=== PATIENT | male | born 1955 | race Hispanic/Latino ===

== ENCOUNTER 2023-08-25 06:06 | Day surgery (SDC) | payer MEDICARE ==
[2023-08-21 11:04] LABS: BASOPHILS # (AUTO) 0.05 K/uL (0.00-0.20); BASOPHILS % (AUTO) 0.9 % (0.0-5.0); EOSINOPHILS # (AUTO) 0.15 K/uL (0.00-0.70); EOSINOPHILS % (AUTO) 2.8 % (0.0-8.0); HEMATOCRIT 50.9 % (42-54); IMMATURE GRANULOCYTE ABSOLUTE 0.02 K/uL (0-1); LYMPHOCYTES # (AUTO) 2.1 K/uL (1.0-4.8); LYMPHOCYTES % (AUTO) 39.6 % (21.0-51.0); MEAN CORPUSCULAR HEMOGLOBIN 30.9 pg (27.0-33.0); MEAN CORPUSCULAR HGB CONC 33.8 g/dL (32.0-36.0); MEAN CORPUSCULAR VOLUME 91.5 fL (79-99); MONOCYTES # (AUTO) 0.5 K/uL (0.1-1.0); NEUTROPHILS # (AUTO) 2.4 K/uL (1.8-7.7); NEUTROPHILS % (AUTO) 46.3 % (40.0-77.0); PLATELET COUNT (AUTO) 169 K/uL (130-400); RED BLOOD CELL COUNT(AUTO) 5.56 MIL/uL (4.50-6.20); RED CELL DISTRIBUTION WIDTH 13.4 % (11.0-15.5); WHITE BLOOD COUNT (AUTO) 5.3 K/uL (4.8-10.8)
[2023-08-21 11:12] LABS: CREATININE 0.8 mg/dL (0.5-1.3); POTASSIUM 5.2 mmol/L (3.5-5.1)
[2023-08-21 11:17] VITALS: BP 138/75; PULSE 68; RESP 18
[2023-08-21 11:18] LABS: ADD UA MICROSCOPIC YES; APPEARANCE,URINE CLEAR (CLEAR); BILIRUBIN,URINE NEGATIVE (NEGATIVE); COLOR,URINE LIGHT-YELLOW (YELLOW); GLUCOSE, URINE (UA) >=1000 mg/dL (NEGATIVE); KETONES,URINE NEGATIVE (NEGATIVE); LEUKOCYTE ESTERASE ,URINE NEGATIVE Leu/uL (NEGATIVE); NITRATE,URINE NEGATIVE (NEGATIVE); OCCULT BLOOD,URINE NEGATIVE (NEGATIVE); PROTEIN,URINE NEGATIVE (NEGATIVE); UROBILINOGEN,URINE 0.2 mg/dL (0.2-1.0)
[2023-08-21 11:22] LABS: MUCUS,URINE RARE LPF (None Seen); RBC,URINE 0-1 /HPF (0-1); SQUAMOUS EPITHELIAL CELL,UR RARE /HPF (0-2)
[2023-08-21 11:34] LABS: B-TYPE NATRIURETIC PEPTIDE 44 pg/mL (0-100)
[2023-08-21 11:35] LABS: INR <= 0.93 (0.85-1.15); PROTHROMBIN TIME 10.9 SEC (9.6-11.6)
[2023-08-21 11:36] LABS: PARTIAL THROMBOPLASTIN TIME 26.4 SEC (26.3-35.5)
[~2023-08-25] VITALS: Ht 177.8 cm; Wt 88.4 kg
[2023-08-25] VITALS (9 sets, daily range): BP systolic 121–155; BP diastolic 70–90; PULSE 71–91; RESP 13–19
[~2023-08-25 06:06] MED LIST: EMPA25TA PO; FENO160T16 PO; METF-446 PO; SEMA1PEN3 SQ; TELM80TA10 PO; calcium PO; magnesium PO
[2023-08-25] MEDS ORDERED: 0.9%NACL 1000ML 1,000 ML IV ONE (06:52)
[2023-08-25] MEDS ORDERED: VERAPAMIL HCL 2.5 MG/ML VIAL ONE (07:30)
[2023-08-25] MEDS ORDERED: IOHEXOL 350 MG/ML 100ML INFUS..BTL IV ONE (07:30)
[2023-08-25] MEDS ORDERED: MIDAZOLAM HCL 1 MG/ML 2ML VIAL ONE ×2 (07:30→08:24)
[2023-08-25] MEDS ORDERED: LIDOCAINE HCL 400MG/20ML VIAL ONE (07:30)
[2023-08-25] MEDS ORDERED: HEPARIN 10,000 UNIT/10ML (1,000 UNIT/ML) VIAL ONE (07:30)
[2023-08-25] MEDS ORDERED: FENTANYL CITRATE PF 50 MCG/1 ML 2ML VIAL ONE (07:30)
[2023-08-25] MEDS ORDERED: NITROGLYCERIN 50MG VIAL ONE (07:31)
[2023-08-25] MEDS ORDERED: ASPIRIN 325MG EC TAB PO ONE (08:20)
[2023-08-25] MEDS ORDERED: CLOPIDOGREL 300MG TAB ONE (08:20)
[2023-08-25] MEDS ORDERED: EPTIFIBATIDE 75MG/100ML BOTTLE 100 ML IV ONE (08:22)
[2023-08-25] MEDS ORDERED: EPTIFIBATIDE 2 MG/ML 10 ML VIAL IVP ONE (08:24)
[2023-08-25] MEDS ORDERED: IOHEXOL-350 75 ML VIAL IV ONE (08:34)
[2023-08-25] MEDS ORDERED: IOHEXOL-350 50ML VIAL IV ONE ×2 (08:59→09:14)
[2023-08-25] MEDS ORDERED: 0.9%NACL 1000ML 1,000 ML IV SCH (10:00)
[2023-08-25] MEDS ORDERED: GLUCAGON 1MG KIT 1 MG ML IM PRN (10:00)
[2023-08-25] MEDS ORDERED: DEXTROSE 50%-WATER 50 ML DISP.SYRIN IV PRN (10:00)
[2023-08-26] MEDS ORDERED: CLOPIDOGREL 75MG TAB PO SCH (09:00)
[2023-08-26] MEDS ORDERED: ASPIRIN 81MG CHEW TAB PO SCH (09:00)
== END 2023-08-25 14:05 | disposition home or self-care (01) ==
LOC: DAH 06:06
PROVIDERS: ATTEND Student in an Organized Health Care Education/Training Program
DX: I25.10 Atherosclerotic heart disease of native coronary artery without angina pectoris (principal); I25.82 Chronic total occlusion of coronary artery; I44.0 Atrioventricular block, first degree; R94.31 Abnormal electrocardiogram [ECG] [EKG]; I10 Essential (primary) hypertension; E78.5 Hyperlipidemia, unspecified; E11.9 Type 2 diabetes mellitus without complications; Z79.01 Long term (current) use of anticoagulants; Z79.899 Other long term (current) drug therapy; Z98.890 Other specified postprocedural states; Z72.89 Other problems related to lifestyle; Z79.84 Long term (current) use of oral hypoglycemic drugs
CPT/HCPCS: 80048; 83880; 85025; 85610; 85730; 81001; 36415 ×2; 71045; 93005; 92978; 92979; 84132; 85347 ×2; 82948; 93458; C9600; C1887 ×3; C1769 ×2; C1725 ×2; C1874 ×2; C1894; A4649; C1753; J3010; J3490 ×3; J7030; J1644 ×3; J2250 ×2; J1327 ×2; Q9967 ×3; A4215; A4222; A4221; A4663; A4216; A4606; Q9965; A4223 ×3; 96360; 96361; 99156; 99157

== ENCOUNTER 2023-08-30 13:42 | Emergency (ER) | payer MEDICARE ==
[~2023-08-30] VITALS: Ht 177.8 cm; Wt 87.1 kg
[2023-08-30 14:38] LABS: BASOPHILS # (AUTO) 0.05 K/uL (0.00-0.20); BASOPHILS % (AUTO) 0.8 % (0.0-5.0); EOSINOPHILS # (AUTO) 0.33 K/uL (0.00-0.70); EOSINOPHILS % (AUTO) 5.3 % (0.0-8.0); HEMATOCRIT 44.1 % (42-54); IMMATURE GRANULOCYTE ABSOLUTE 0.02 K/uL (0-1); LYMPHOCYTES # (AUTO) 1.8 K/uL (1.0-4.8); LYMPHOCYTES % (AUTO) 28.6 % (21.0-51.0); MEAN CORPUSCULAR HEMOGLOBIN 30.1 pg (27.0-33.0); MEAN CORPUSCULAR HGB CONC 34.7 g/dL (32.0-36.0); MEAN CORPUSCULAR VOLUME 86.8 fL (79-99); MONOCYTES # (AUTO) 0.6 K/uL (0.1-1.0); MONOCYTES % (AUTO) 9.6 % (3.0-13.0); NEUTROPHILS # (AUTO) 3.5 K/uL (1.8-7.7); NEUTROPHILS % (AUTO) 55.4 % (40.0-77.0); PLATELET COUNT (AUTO) 161 K/uL (130-400); RED BLOOD CELL COUNT(AUTO) 5.08 MIL/uL (4.50-6.20); RED CELL DISTRIBUTION WIDTH 13.2 % (11.0-15.5); WHITE BLOOD COUNT (AUTO) 6.3 K/uL (4.8-10.8)
[2023-08-30 14:52] LABS: INR 0.96 (0.85-1.15); PROTHROMBIN TIME 11.4 SEC (9.6-11.6)
[2023-08-30 14:54] LABS: PARTIAL THROMBOPLASTIN TIME 26.4 SEC (26.3-35.5)
[2023-08-30 15:08] LABS: B-TYPE NATRIURETIC PEPTIDE 65 pg/mL (0-100)
[2023-08-30 15:20] LABS: ALBUMIN 4.1 g/dL (3.5-5.0); BILIRUBIN,TOTAL 0.7 mg/dL (0.2-1.0); CREATININE 0.7 mg/dL (0.5-1.3); POTASSIUM 4.7 mmol/L (3.5-5.1); TOTAL PROTEIN, SERUM 7.5 g/dL (6.0-8.3)
[2023-08-30 16:34] VITALS: BP 144/57; PULSE 71; RESP 18; O2SAT 98
== END 2023-08-30 16:39 | disposition home or self-care (01) ==
LOC: EDH 13:42
DX: R07.89 Other chest pain (principal); Z79.84 Long term (current) use of oral hypoglycemic drugs; Z79.899 Other long term (current) drug therapy; Z98.890 Other specified postprocedural states
CPT/HCPCS: 36415; 71045; 80053; 82550; 83880; 84484; 85025; 85610; 85730; 93005

== ENCOUNTER → 2023-12-01 | Outpatient (CLI) | payer MEDICARE ==
[2023-12-01 12:30] LABS: CHOLESTEROL 141 mg/dL (<200); HDL CHOLESTEROL 48 mg/dL (29-71); LDL DIRECT 63 mg/dL (0-99); TRIGLYCERIDES 306 mg/dL (30-200)
== END | disposition home or self-care (01) ==
LOC: LAB 10:49
PROVIDERS: ATTEND Student in an Organized Health Care Education/Training Program
DX: E78.5 Hyperlipidemia, unspecified (principal)
CPT/HCPCS: 36415; 80061

== ENCOUNTER 2024-06-23 17:17 | Emergency (ER) | payer MEDICARE ==
[~2024-06-23] VITALS: Ht 177.8 cm; Wt 89.8 kg
[2024-06-23 17:49] LABS: BASOPHILS # (AUTO) 0.07 K/uL (0.00-0.20); BASOPHILS % (AUTO) 1.1 % (0.0-5.0); EOSINOPHILS # (AUTO) 0.25 K/uL (0.00-0.70); EOSINOPHILS % (AUTO) 3.8 % (0.0-8.0); HEMATOCRIT 34.6 % (42-54); IMMATURE GRANULOCYTE ABSOLUTE 0.02 K/uL (0-1); LYMPHOCYTES # (AUTO) 2.3 K/uL (1.0-4.8); LYMPHOCYTES % (AUTO) 35.7 % (21.0-51.0); MEAN CORPUSCULAR HEMOGLOBIN 30.9 pg (27.0-33.0); MEAN CORPUSCULAR HGB CONC 33.5 g/dL (32.0-36.0); MONOCYTES # (AUTO) 0.6 K/uL (0.1-1.0); MONOCYTES % (AUTO) 9.5 % (3.0-13.0); NEUTROPHILS # (AUTO) 3.2 K/uL (1.8-7.7); NEUTROPHILS % (AUTO) 49.6 % (40.0-77.0); PLATELET COUNT (AUTO) 199 K/uL (130-400); RED BLOOD CELL COUNT(AUTO) 3.76 MIL/uL (4.50-6.20); RED CELL DISTRIBUTION WIDTH 14.1 % (11.0-15.5); WHITE BLOOD COUNT (AUTO) 6.5 K/uL (4.8-10.8)
[2024-06-23 18:00] LABS: POTASSIUM 4.2 mmol/L (3.5-5.1)
--- NOTE | 2024-06-23 18:00 | HMCIMG ---
PORTABLE CHEST RADIOGRAPH INDICATION: pain COMPARISON: 08/30/2023 FINDINGS: Heart size is normal. The pulmonary vascularity and valerie appear normal. No abnormal pulmonary parenchymal opacity or consolidation identified. No significant pleural effusion noted. No pneumothorax detected. IMPRESSION: No radiographic evidence for any acute cardiopulmonary process.
[2024-06-23 18:07] LABS: B-TYPE NATRIURETIC PEPTIDE 67 pg/mL (0-100)
[2024-06-23] MEDS ORDERED: TELM80TA10 PO (18:14)
[2024-06-23] MEDS ORDERED: METF-446 PO (18:14)
[2024-06-23] MEDS ORDERED: ROSU40TA88 PO (18:14)
[2024-06-23] MEDS ORDERED: EMPA10TA PO (18:14)
[2024-06-23] MEDS ORDERED: CEFP200T14 PO (18:14)
[2024-06-23] MEDS ORDERED: METO-408 PO (18:14)
[2024-06-23] MEDS ORDERED: TAMS-55 PO (18:14)
[2024-06-23] MEDS ORDERED: CLOP75TA32 PO (18:14)
[2024-06-23] MEDS ORDERED: AEC81 PO (18:14)
[2024-06-23] MEDS ORDERED: ICOS1CAP2 PO (18:14)
--- NOTE | 2024-06-23 18:16 | ERN ---
General Chief Complaint: Chest Pain Stated Complaint: CHEST PAIN Time Seen by MD: 17:21 Time Seen by Midlevel: 17:21 Source: patient History of Present Illness Initial Comments 68-year-old male who presents to the emergency department due to chest pain onset five days. States the pain comes and goes, and is worse after eating. Denies SOB, vomiting, vision change, headache, fever or further associated symptoms. Patient reports he was seen at [facility] and admitted last week due to hypotension and UTI. PMHx DM, hypercholesterolemia, cardiac stent placement one year ago. Allergies: Coded Allergies: No Known Drug Allergies (Unverified Allergy, Unknown, 08/21/23) Home Meds Active Scripts Pantoprazole Sodium (Protonix) 20 Mg Tablet.dr, 1 TAB PO DAILY for 7 Days, #7 TAB 0 Refills Prov:YOHANNES BHARDWAJ 06/23/24 Polyethylene Glycol 3350 (Miralax) 17 Gram Powd.pack, 17 GM PO DAILY for const ipation, #7 PACKET 0 Refills Prov:YOHANNES BHARDWAJ 06/23/24 Reported Medications Empagliflozin (Jardiance) 10 Mg Tablet, 1 TAB PO DAILY for 30 Days, #30 TAB 0 Refills 06/23/24 Telmisartan (Telmisartan) 80 Mg Tablet, 1 TAB PO DAILY for 30 Days, #30 TAB 0 Refills 06/23/24 Tamsulosin HCl (Flomax) 0.4 Mg Cap.er.24h, 1 CAP PO DAILY for 30 Days, #30 CAP 0 Refills 06/23/24 Rosuvastatin Calcium (Rosuvastatin Calcium) 40 Mg Tablet, 1 TAB PO DAILY for high cholesterol for 30 Days, #30 TAB 0 Refills 06/23/24 Metformin HCl (Metformin HCl) 1,000 Mg Tablet, 1 TAB PO BID for 30 Days, #60 TAB 0 Refills 06/23/24 Icosapent Ethyl (Icosapent Ethyl) 1 Gram Capsule, 2 CAP PO BID for 30 Days, #120 CAP 0 Refills 06/23/24 Clopidogrel Bisulfate (Clopidogrel) 75 Mg Tablet, 1 TAB PO DAILY for 30 Days, #30 TAB 0 Refills 06/23/24 Aspirin (ASPIRIN 81 MG ECTAB) 81 Mg Ectab, 81 MG PO DAILY, TAB.EC 06/23/24 Metoprolol Succinate (Metoprolol Succinate) 25 Mg Tab.er.24h, 1 TAB PO DAILY for 30 Days, #30 TAB 0 Refills 06/23/24 Cefpodoxime Proxetil (Cefpodoxime Proxetil) 200 Mg Tablet, 1 TAB PO BID for 7 Days, #14 TAB 0 Refills 06/23/24 Semaglutide (Ozempic) 1 Mg/0.75 Ml (4 Mg/3 Ml) Pen.injctr, 1 MG SQ sat 08/21/23 [calcium] No Conflict Check, 1 TAB PO AM 08/21/23 [magnesium] No Conflict Check, 1 TAB PO AM 08/21/23 Fenofibrate (Fenofibrate) 160 Mg Tablet, 160 MG PO HS, TAB 08/21/23 Telmisartan (Telmisartan) 80 Mg Tablet, 80 MG PO AM, TAB 08/21/23 Empagliflozin (Jardiance) 25 Mg Tablet, 25 MG PO HS, TAB 08/21/23 Metformin HCl (Metformin HCl) 1,000 Mg Tablet, 1000 MG PO AM, TAB 08/21/23 Past Medical History Past Medical History: Diabetes-Type II, High Cholesterol, Heart Disease Past Surgical History: Cholecystectomy Surgical History Other: HEART STENTS, LT HAND SX, LT HIP SX, LT KNEE SX ROS Dictation Constitutional: Negative for fever,chills, and weight loss Eyes: Negative for injury, pain,redness, and discharge ENT: Negative for injury,pain or swelling Cardiovascular: Positive for chest pain Negative for palpitations, and edema Respiratory: Negative for shortness of breath, cough, and wheezing, Abdomen/GI: Negative for abdominal pain, nausea, vomiting, diarrhea, and constipation Back: Negative for injury and pain : Negative for painful urination, bleeding or discharge MS/Extremity: Negative for injury and deformity Skin: Negative for rash, and discoloration Neuro: Negative for headache, weakness, numbness, tingling, and seizure Psych: Negative for suicide ideation, homicidal ideation, and hallucinations Physical Exam Physical Exam Dictation General: awake, alert, no acute distress Head/Face: Normocephalic, atraumatic Eyes: PERRL, EOMI, normal conjunctiva ENT: oral cavity clear, oral mucosa moist Neck: Supple, normal range of motion Cardiovascular: RRR, normal S1/S2 Respiratory: CTAB, no respiratory distress, no rales or wheezes Chest: No tenderness, normal appearance Abdomen: Soft, non-tender, non-distended, no guarding or rebound. Skin: Warm, dry, normal turgor, no rash MS/Extremity: Pulses equal, no cyanosis, neurovascular intact, FROM Neuro: COAx4, GCS 15, strength 5/5, CN 2-12 intact, normal cerebellar exam, normal gait Psych: Normal behavior, mood, and affect normal Results Laboratory and Microbiology Lab and Micro Result Laboratory Tests Test 06/23/24 17:40 06/23/24 18:00 06/23/24 18:55 White Blood Count 6.5 K/uL (4.8-10.8) Red Blood Count 3.76 MIL/uL (4.50-6.20) L Hemoglobin 11.6 g/dL (14.0-18.0) L Hematocrit 34.6 % (42-54) L Mean Corpuscular Volume 92.0 fL (79-99) Mean Corpuscular Hemoglobin 30.9 pg (27.0-33.0) Mean Corpuscular Hemoglobin Concent 33.5 g/dL (32.0-36.0) Red Cell Distribution Width 14.1 % (11.0-15.5) Platelet Count 199 K/uL (130-400) Mean Platelet Volume 10.9 fL (7.5-10.5) H Immature Granulocyte % (Auto) 0.3 % (0-1) Neutrophils (%) (Auto) 49.6 % (40.0-77.0) Lymphocytes (%) (Auto) 35.7 % (21.0-51.0) Monocytes (%) (Auto) 9.5 % (3.0-13.0) Eosinophils (%) (Auto) 3.8 % (0.0-8.0) Basophils (%) (Auto) 1.1 % (0.0-5.0) Neutrophils # (Auto) 3.2 K/uL (1.8-7.7) Lymphocytes # (Auto) 2.3 K/uL (1.0-4.8) Monocytes # (Auto) 0.6 K/uL (0.1-1.0) Eosinophils # (Auto) 0.25 K/uL (0.00-0.70) Basophils # (Auto) 0.07 K/uL (0.00-0.20) Absolute Immature Granulocyte (auto 0.02 K/uL (0-1) Nucleated Red Blood Cells 0.0 % (0.0-0.19) Sodium Level 137 mmol/L (136-145) Potassium Level 4.2 mmol/L (3.5-5.1) Chloride Level 101 mmol/L (101-111) Carbon Dioxide Level 24 mmol/L (21-32) Blood Urea Nitrogen 21 mg/dL (7-18) H Creatinine 1.0 mg/dL (0.5-1.3) Glomerular Filtration Rate Calc 81 mL/min (>90) Random Glucose 160 mg/dL (70-105) H Total Calcium 9.1 mg/dL (8.5-10.1) Total Bilirubin 0.5 mg/dL (0.2-1.0) Direct Bilirubin 0.1 mg/dL (0.0-0.3) Aspartate Amino Transf (AST/SGOT) 54 U/L (10-37) H Alanine Aminotransferase (ALT/SGPT) 67 U/L (12-78) Alkaline Phosphatase 148 U/L (50-136) H Troponin I High Sensitivity 39 ng/L (4-75) 44 ng/L (4-75) B-Type Natriuretic Peptide 67 pg/mL (0-100) Total Protein 7.1 g/dL (6.0-8.3) Albumin 3.8 g/dL (3.5-5.0) Lipase 96 U/L (16-77) H Urine Color LIGHT-YELLOW (YELLOW) Urine Appearance CLEAR (CLEAR) Urine pH 5.5 (5.0-8.0) Urine Specific [place] 1.034 (1.001-1.031) Urine Protein NEGATIVE mg/dL (NEGATIVE) Urine Glucose (UA) >=1000 mg/dL (NEGATIVE) H Urine Ketones NEGATIVE mg/dL (NEGATIVE) Urine Occult Blood NEGATIVE (NEGATIVE) Urine Nitrate NEGATIVE (NEGATIVE) Urine Bilirubin NEGATIVE mg/dL (NEGATIVE) Urine Urobilinogen 0.2 mg/dL (0.2-1.0) Urine Leukocyte Esterase NEGATIVE [place]/uL Urine RBC 0-1 /HPF (0-1) Urine WBC 6-10 /HPF (0-1) H Urine Squamous Epithelial Cells FEW /HPF (0-2) Urine Bacteria None /HPF (None Seen) Labs Reviewed?: Yes EKG/XRAY/US/CT/MRI EKG Comment Date: 06/23/24 Time: 17:15 Rate: 62 EKG interpretation: Sinus rhythm, nonspecific IVCD with LAD, left ventricular hypertrophy, no STEMI Reviewed by ED Attending X-RAY Comment REASON: pain ORDERING PHYSICIAN: YOHANNES BHARDWAJ PROCEDURE: CXR1VW - CHEST 1VW PORTABLE CHEST RADIOGRAPH INDICATION: pain COMPARISON: 08/30/2023 FINDINGS: Heart size is normal. The pulmonary vascularity and valerie appear normal. No abnormal pulmonary parenchymal opacity or consolidation identified. No significant pleural effusion noted. No pneumothorax detected. IMPRESSION: No radiographic evidence for any acute cardiopulmonary process. DICTATED BY: ROSSY BENNETT MD DATE: 06/23/241756 [facility] MDM: Differential diagnosis: IA, ACS, atypical chest pain, musculoskeletal chest pain, gastritis, acid reflux Rationale: 68-year-old male who presents to the emergency department due to chest pain onset five days. States the pain comes and goes, and is worse after eating. Denies SOB, vomiting, vision change, headache, fever or further associated symptoms. Last bowel movement today. Patient reports he was seen at [facility] and admitted last week due to hypotension and UTI. PMHx DM, hypercholesterolemia, cardiac stent placement one year ago. Per physical examination pain appears to be epigastrically, patient is in no acute distress, nonlabored breathing, abdomen is soft nontender. Labs obtained indicating mild anemia with hemoglobin of 11.6, mild elevation of the AST and alk-phos nonspecific, BNP within normal limits, troponin initial 39 repeat 44 with a normal limits. Patient currently on antibiotics for UTI UA does not indicate a UTI however patient was recommended to complete antibiotic course. Patient was administered GI cocktail in the ED and on re-examination verbalized pain resolved, chest pain/epigastric pain more consistent with acid reflux rather than a cardiac cause. Patient was educated on findings and diagnosis. Admission vs outpatient follow up was discussed with patient however he verb alized he would would like to be discharged and follow up outpatient. Advised to follow up with PCP. Return to the emergency department if any worsening symptoms. Patient verbalized understanding. Patient stable for discharge. Patient was prescribed Protonix for symptomatic treatment of acid reflux, and MiraLax due to stating he has not been having daily bowel movements. There are no social concerns with this patient. I independently interpreted the test that were performed, results were reviewed by me and considered findings on radiology if ordered. Medical management and examination interpretation discussions were had by me with other qualified healthcare professionals as indicated for the patient's care. ED Course Orders Procedure Category Date Status Time Cbc With Differential LAB 06/23/24 Complete 17:24 Basic Metabolic Panel LAB 06/23/24 Complete 17:24 Urinalysis LAB 06/23/24 Complete W/Microscopic 17:24 Troponin I High LAB 06/23/24 Complete Sensitivity 17:24 B-Type Natriuretic LAB 06/23/24 Complete Peptide 17:24 Chest 1vw RAD 06/23/24 Resulted 17:24 12 Lead Ekg Tracing- EKG 06/23/24 Logged Technical 17:24 Hepatic Function Panel LAB 06/23/24 Complete 17:39 Lipase LAB 06/23/24 Complete 17:39 Culture Urine REX 06/23/24 In Process 18:25 Troponin I High LAB 06/23/24 Complete Sensitivity 18:26 Mag/Alum/Simeth 30ml PHA 06/23/24 Complete (Maalox Plus 30ml) 18:30 Lidocaine Hcl 2% PHA 06/23/24 Complete Viscous (Lidocaine Hcl 18:30 Pantoprazole 40mg Tab PHA 06/23/24 Complete (Protonix 40mg Tab 18:30 Current Medications Medications (Trade) Dose Ordered Sig/Whitney Route PRN Reason Start Time Stop Time Status Last Admin Dose Admin Al Hydroxide/Mg Hydroxide (MAALox PLUS 30ML) 30 ml ONCE ONCE PO 06/23/24 18:30 06/23/24 18:31 DC 06/23/24 18:47 Lidocaine HCl (Lidocaine HCl 2% Viscous) 10 ml ONCE ONCE PO 06/23/24 18:30 06/23/24 18:31 DC 06/23/24 18:47 Pantoprazole Sodium (PROTonix 40MG TAB) 40 mg ONCE ONCE PO 06/23/24 18:30 06/23/24 18:31 DC 06/23/24 18:48 Vital Signs Date Time Temp Pulse Resp B/P (MAP) Pulse Ox O2 Delivery O2 Flow Rate FiO2 06/23/24 19:37 97.7 77 16 142/70 99 Room Air* 0 21 06/23/24 18:51 97.9 60 16 125/65 99 Room Air* 0 21 06/23/24 17:54 97.9 74 18 132/62 98 Room Air* 0 21 06/23/24 17:20 98.2 75 18 137/53 100 Room Air 0 DX & DISP Disposition: Discharge Departure Impression: Primary Impression: Acid reflux Additional Impression: Chest pain, non-cardiac Condition: Stable Scripts Pantoprazole Sodium (Protonix) 20 Mg Tablet.dr 1 TAB PO DAILY for 7 Days, #7 TAB 0 Refills Prov: YOHANNES BHARDWAJ 06/23/24 Polyethylene Glycol 3350 (Miralax) 17 Gram Powd.pack 17 GM PO DAILY for constipation, #7 PACKET 0 Refills Prov: YOHANNES BHARDWAJ 06/23/24 Additional Instructions: Discharge home. Rest. Follow up with primary care in 24 hours. Return to the ER for any acute changes or worsening symptoms. If any medications were prescribed take as directed. Okay to continue home medications unless otherwise discussed during your visit in the emergency room today. Patient was also advised to follow-up with primary care physician in 1 to 2 days for continued monitoring. Referrals: VALERIO BUENROSTRO (PCP) I performed the substantive portion of the visit. I have reviewed and personally made and approve the management plan that is documented in the notes by myself or the FAYE. I acknowledge full responsibility for the patient's management plan. YOHANNES BHARDWAJ Jun 23, 2024 18:16
[2024-06-23 18:24] LABS: APPEARANCE,URINE CLEAR (CLEAR); BILIRUBIN,URINE NEGATIVE (NEGATIVE); COLOR,URINE LIGHT-YELLOW (YELLOW); GLUCOSE, URINE (UA) >=1000 mg/dL (NEGATIVE); KETONES,URINE NEGATIVE (NEGATIVE); LEUKOCYTE ESTERASE ,URINE NEGATIVE Leu/uL (NEGATIVE); MUCUS,URINE RARE LPF (None Seen); NITRATE,URINE NEGATIVE (NEGATIVE); OCCULT BLOOD,URINE NEGATIVE (NEGATIVE); PH,URINE 5.5 (5.0-8.0); RBC,URINE 0-1 /HPF (0-1); SQUAMOUS EPITHELIAL CELL,UR FEW /HPF (0-2); UROBILINOGEN,URINE 0.2 mg/dL (0.2-1.0)
[2024-06-23 18:25] LABS: PROTEIN,URINE NEGATIVE (NEGATIVE)
[2024-06-23] MEDS: LIDOCAINE HCL 2% VISCOUS 15 ML UDCUP PO ONE (18:47)
[2024-06-23] MEDS: MAG/ALUM/SIMETH 30 ML UDCUP PO ONE (18:47)
[2024-06-23] MEDS: PANTOPrazole 40 MG TAB DR PO ONE (18:48)
[2024-06-23 19:19] LABS: ALBUMIN 3.8 g/dL (3.5-5.0); BILIRUBIN,DIRECT 0.1 mg/dL (0.0-0.3); BILIRUBIN,TOTAL 0.5 mg/dL (0.2-1.0); TOTAL PROTEIN, SERUM 7.1 g/dL (6.0-8.3)
[2024-06-23 19:37] VITALS: BP 142/70; PULSE 77; RESP 16; TEMP 97.7; O2SAT 99
[2024-06-23] MEDS ORDERED: PANT20TA PO (19:44)
[2024-06-23] MEDS ORDERED: POLY17PO4 PO (19:44)
--- NOTE | 2024-06-24 06:37 | EKG ---
[facility] Test Date: 2024-06-23 Test Time: 17:15:12 Pat Name: SAMANTHA RAMIREZRodriguezpartment: [facility] Room: Gender: Graphics Coordinator: 08 : 1955 Requested By: YOHANNES BHARDWAJ Order Number: [id number] Reading MD: Camilla Cr Measurements Intervals [place] Rate: 62 P: 55 ND: 186 QRS: -52 QRSD: 128 T: 75 QT: 424 QTc: 430 Interpretive Statements Sinus rhythm Nonspecific IVCD with LAD Left ventricular hypertrophy Anterior ST elevation, probably due to LVH Compared to ECG 08/30/2023 14:04:06 Left ventricular hypertrophy now present ST (T wave) deviation now present Ventricular premature complex(es) no longer present Electronically Signed On 06-25-2024 10:55:24 CDT by Camilla Cr Please click the below link to view image of tracing.
== END 2024-06-23 19:59 | disposition home or self-care (01) ==
LOC: EDH 17:17
DX: K21.9 Gastro-esophageal reflux disease without esophagitis (principal); R07.89 Other chest pain; E11.9 Type 2 diabetes mellitus without complications; E78.00 Pure hypercholesterolemia, unspecified; Z79.02 Long term (current) use of antithrombotics/antiplatelets; Z79.82 Long term (current) use of aspirin; Z79.84 Long term (current) use of oral hypoglycemic drugs; Z79.899 Other long term (current) drug therapy; Z90.49 Acquired absence of other specified parts of digestive tract; Z95.5 Presence of coronary angioplasty implant and graft
CPT/HCPCS: 36415; 71045; 80048; 80076; 81001; 83690; 83880; 84484; 85025; 87086; 87186; 93005; 99284; 99285